=== PATIENT | male | born 1975 | race Two or more races ===

== ENCOUNTER 2022-03-06 09:38 | Emergency (ER) | payer MEDICAID, OTHER ==
[~2022-03-06] VITALS: Ht 172.7 cm; Wt 88.5 kg
[2022-03-06] MEDS ORDERED: KETOROLAC TROMETH 30 MG/ML 1ML VIAL IV ONE ×2 (12:15→22:30)
[2022-03-06 13:23] LABS: Basophils # (auto) 0.1 10 ^3/uL (0-0.2); Basophils % (auto) 0.8 % (0.0-2.0); Eosinophils # (auto) 0.1 10 ^3/uL (0-0.8); Eosinophils % (auto) 0.7 % (0.0-7.0); Hemoglobin 16.6 g/dL (13.5-17.5); Lymphocytes # (auto) 1.8 10 ^3/uL (0.4-5.4); Lymphocytes % (auto) 24.5 % (10.0-50.0); Mean Corpuscular Hgb Conc. 35.3 g/dL (32.0-36.0); Mean Corpuscular Volume 87.8 fL (80.0-100.0); Monocytes # (auto) 0.6 10 ^3/uL (0-1.3); Monocytes % (auto) 7.5 % (0.0-12.0); Neutrophils % (auto) 66.5 % (37.0-80.0); Nucleated Red Blood Cells % 0.2 %; Red Blood Cells 5.35 10^6/uL (4.5-5.90); Red Cell Distribution Width 13.8 % (11.8-14.3); White Blood Cell 7.5 10^3/uL (4.4-10.8)
[2022-03-06 13:40] LABS: Albumin 4.2 g/dL (3.4-5.0); Calcium 8.7 mg/dL (8.5-10.1); Potassium 3.9 mmol/L (3.5-5.1)
[2022-03-06 13:43] LABS: Bilirubin, Total 0.5 mg/dL (0.2-1.0); Total Protein 7.6 g/dL (6.4-8.2)
[2022-03-06] MEDS ORDERED: IOHEXOL 300 MG/ML 100ML BOTTLE IJ ONE (13:56)
[2022-03-06] MEDS ORDERED: CIPR-273 PO (15:30)
[2022-03-06] MEDS ORDERED: SENN1TAB14 PO (15:30)
[2022-03-06] MEDS ORDERED: DOCU100T15 PO (15:31)
[2022-03-06] MEDS ORDERED: HYDR-5192 EX (15:31)
[2022-03-06 18:24] LABS: Urine Bacteria NONE SEEN /hpf (None Seen); Urine Blood Negative /uL (Negative); Urine WBC <1 /hpf (0 - 3)
[2022-03-06 18:25] LABS: Urine Specific Gravity > 1.050 (1.001-1.035)
[2022-03-06 23:00] VITALS: BP 129/87
== END 2022-03-06 23:02 | disposition home or self-care (01) ==
LOC: ER 09:38
DX: K64.9 Unspecified hemorrhoids (principal)
CPT/HCPCS: 36415; 74177; 80053; 81001; 85025; 96374; 96376; 99285; J1885; Q9967